=== PATIENT | female | born 1985 | race Caucasian/White ===

== ENCOUNTER 2018-11-07 16:07 | Emergency (ER) | payer SELFPAY ==
[~2018-11-07] VITALS: Ht 165.1 cm; Wt 77.1 kg
[2018-11-07 16:26] VITALS: BP 115/66
[2018-11-07] MEDS ORDERED: IBUPROFEN 600 MG TABLET PO ONE ×2 (16:54→17:00)
--- NOTE | 2018-11-07 17:00 | NUR ---
PT TO XRAY VIA SUN.
== END 2018-11-07 17:37 | disposition home or self-care (01) ==
LOC: ER 16:07
DX: S13.4XXA Sprain of ligaments of cervical spine, initial encounter (principal); F17.200 Nicotine dependence, unspecified, uncomplicated; V49.49XA Driver injured in collision with other motor vehicles in traffic accident, initial encounter; Y93.89 Activity, other specified; Y92.413 State road as the place of occurrence of the external cause; Y99.8 Other external cause status
CPT/HCPCS: 72040; 99283; A4606